=== PATIENT | female | born 1960 | race Caucasian/White ===

== ENCOUNTER 2017-12-14 13:26 | Emergency (ER) | payer BC ==
[2017-12-14 13:57] VITALS: RESP 18
[2017-12-14] MEDS ORDERED: APIXABAN 5 MG TAB PO STA (15:23)
--- NOTE | 2017-12-14 15:25 | ED ---
Extremity Problem HPI - General Chief complaint: Extremity Problem,Nontraumatic Stated complaint: blood clot-sent by Time Seen by Provider: 12/14/17 14:49 Source: patient, RN notes reviewed, old records reviewed Mode of arrival: ambulatory Limitations: no limitations - History of Present Illness Initial comments: This patient is a 57-year-old female presents to the emergency department after an outpatient study ceiling that she had a positive blood clot. She was sent here by Dr. Torres office. Patient states that she's had a history of blood clot 's when she was 20 years ago. She reports that a few weeks ago she had an injury where she fell on her left leg. Since that time she was having some redness and swelling to the leg. She had a Doppler US d a few weeks ago by [facility] which was negative. Patient denies any chest pain or shortness of breath. - Related Data Previous Rx's Medication Instructions Recorded Apixaban [Eliquis] 5 mg PO BID #70 tablet 12/14/17 Allergies Allergy/AdvReac Type Severity Reaction Status Date / Time No Known Allergies Allergy Verified 12/14/17 13:57 Review of Systems ROS Statement: Those systems with pertinent positive or pertinent negative responses have been documented in the HPI. ROS Other: All systems not noted in ROS Statement are negative. Past Medical History Past Medical History: Asthma, Thyroid Disorder History of Any Multi-Drug Resistant Organisms: None Reported Past Surgical History: Section, Orthopedic Surgery Past Psychological History: No Psychological Hx Reported Smoking Status: Former smoker Past Alcohol Use History: Occasional Past Drug Use History: None Reported General Exam - General Exam Comments Initial Comments: This is a well appearing and pleasant 57 yo feamle, no distress. Limitations: no limitations General appearance: alert, in no apparent distress Head exam: Present: atraumatic, normocephalic, normal inspection Eye exam: Present: normal appearance, PERRL, EOMI. Absent: scleral icterus, conjunctival injection, periorbital swelling ENT exam: Present: normal exam, mucous membranes moist Neck exam: Present: normal inspection. Absent: tenderness, meningismus, lymphadenopathy Respiratory exam: Present: normal lung sounds bilaterally. Absent: respiratory distress, wheezes, rales, rhonchi, stridor Cardiovascular Exam: Present: regular rate, normal rhythm, normal heart sounds. Absent: systolic murmur, diastolic murmur, rubs, gallop, clicks Extremities exam: Present: normal inspection, full ROM, normal capillary refill , calf tenderness (left calf tenderness, erythema to mid lower leg. Tenderness over popliteal reagion. ). Absent: tenderness, pedal edema, joint swelling Back exam: Present: normal inspection Psychiatric exam: Present: normal affect, normal mood Skin exam: Present: warm, dry, intact, normal color. Absent: rash Course Vital Signs 12/14/17 12/14/17 12/14/17 13:54 15:35 15:46 Temperature 98.0 F 97.9 F 97.9 F Pulse Rate 77 74 74 Respiratory 18 18 18 Rate Blood Pressure 162/89 126/90 126/90 O2 Sat by Pulse 98 97 97 Oximetry Medical Decision Making - Medical Decision Making Female with an outpatient ultrasound study positive for DVT. She has no chest pain or shortness of breath. Does have left for extremity swelling and redness. Patient has no rectal bleeding. Discussed we can start the patient on Eliquis. Patient was given initial dose in the emergency department. Patient will be treated with eiliquis, was given a free month trial card.Patient has a follow- up appointment in three weeks with her vascular specialist. All questions answered return parameters were discussed. - Radiology Data Radiology results: report reviewed US is positive for DVT in popliteal region. Disposition Clinical Impression: Left leg DVT Disposition: HOME SELF-CARE Condition: Good Instructions: Deep Venous Thrombosis (ED) Additional Instructions: Patient has a follow-up with primary care provider and Dr. Alexis. Take the medication as prescribed. Return to the emergency department if any alarming signs or symptoms occur. Prescriptions: Apixaban [Eliquis] 5 mg PO BID #70 tablet Is patient prescribed a controlled substance at d/c from ED?: No If prescribed controlled substance>3 days was MAPS reviewed?: No When asked, does pt state using other controlled substances?: No Referrals: Dionne Ahn MD [Primary Care Provider] - 1-2 days Frank Alexis MD [STAFF PHYSICIAN] - 1-2 days Time of Disposition: 15:22
[2017-12-14 15:37] VITALS: BP 126/90; PULSE 74; TEMP 97.9
== END 2017-12-14 15:46 | disposition home or self-care (01) ==
LOC: EC 13:26
DX: I82.402 Acute embolism and thrombosis of unspecified deep veins of left lower extremity (principal); Z87.891 Personal history of nicotine dependence
CPT/HCPCS: 99283

== ENCOUNTER → 2017-12-14 | Outpatient (CLI) | payer BC ==
--- NOTE | 2017-12-14 15:05 | US ---
EXAMINATION TYPE: US venous doppler duplex LE LT DATE OF EXAM: 12/14/2017 12:27 PM COMPARISON: NONE CLINICAL HISTORY: M25.562 Pain in left knee; swelling left lower leg after fall; prior left leg DVT 2 2 years ago post . SIDE PERFORMED: Left TECHNIQUE: The lower extremity deep venous system is examined utilizing real time linear array sonog yovani with graded compression, doppler sonography and color-flow sonography. VESSELS IMAGED: Common Femoral Vein Deep Femoral Vein Greater Saphenous Vein * Femoral Vein Popliteal Vein Small Saphenous Vein * Proximal Calf Veins (* superficial vessels) Left Leg: Positive for non occluding DVT in left popliteal vein as wall echoes are hyperechoic sugge sting chronic changes. Left knee anterior fluid pocket is noted = 5.4 x 4.5 x 0.8cm. Tech findings called to Roselyn at Dr Anderson's Office at exam's end. IMPRESSION: Asymmetrically located nonocclusive thrombus within the left popliteal vein suggesting c hronicity.
== END | disposition home or self-care (01) ==
LOC: RADUSWWP 12:23
PROVIDERS: ATTEND Orthopaedic Surgery
DX: I82.432 Acute embolism and thrombosis of left popliteal vein (principal)

== ENCOUNTER → 2018-11-22 | Outpatient (CLI) | payer BC ==
--- NOTE | 2018-11-22 09:56 | US ---
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 F/U left leg SIDE PERFORMED: Left TECHNIQUE: The lower extremity deep venous system is examined utilizing real time linear array sonog yovani with graded compression, doppler sonography and color-flow sonography. VESSELS IMAGED: External Iliac Vein (EIV) Common Femoral Vein Deep Femoral Vein Greater Saphenous Vein * Femoral Vein Popliteal Vein Small Saphenous Vein * Proximal Calf Veins (* superficial vessels) Left Leg: No evidence of acute DVT/ Probable non-occluding chronic thrombus within left pop vein, ap pears unchanged when compared to previous IMPRESSION: No evidence for DVT at this time.
== END | disposition home or self-care (01) ==
LOC: RADUSWWP 08:56
PROVIDERS: ATTEND Internal Medicine Hematology & Oncology
DX: I82.532 Chronic embolism and thrombosis of left popliteal vein (principal)

== ENCOUNTER → 2019-05-26 | Outpatient (CLI) | payer BC ==
--- NOTE | 2019-05-26 15:09 | US ---
EXAMINATION TYPE: US venous doppler duplex LE LT DATE OF EXAM: 05/26/2019 2:38 PM COMPARISON: Left largest on the venous ultrasound November 22, 2018 CLINICAL HISTORY: I82.532 Chronic embolism and thrombosis of left. Hx of DVT SIDE PERFORMED: Left TECHNIQUE: The lower extremity deep venous system is examined utilizing real time linear array sonog yovani with graded compression, doppler sonography and color-flow sonography. VESSELS IMAGED: External Iliac Vein (EIV) Common Femoral Vein Deep Femoral Vein Greater Saphenous Vein * Femoral Vein Popliteal Vein Small Saphenous Vein * Proximal Calf Veins (* superficial vessels) Left Leg: Negative for DVT. Grayscale, color doppler, spectral doppler imaging performed of the deep veins of the left lower extr emity. There is normal flow, compressibility, vascular waveforms. IMPRESSION: No ultrasound evidence for acute DVT in the left lower extremity.
== END | disposition home or self-care (01) ==
LOC: RADUSWWP 14:07
PROVIDERS: ATTEND Internal Medicine Hematology & Oncology
DX: I82.532 Chronic embolism and thrombosis of left popliteal vein (principal)